=== PATIENT | male | born 1985 | race African-American/Black ===

== ENCOUNTER 2019-04-20 02:25 | Emergency (ER) | payer SELFPAY ==
[~2019-04-20] VITALS: Ht 180.3 cm; Wt 89.4 kg
--- NOTE | 2019-04-20 03:01 | NUR ---
BIBSELF. AMBULATORY. AAOX4. NAD, BREATHING EVEN AND UNLABORED. JERE JUNG. -N/V/D. C/O MOUTH PAIN ON LEFT SIDE UPPER AND LOWER. SHARP PAIN 10/10. PT ALSO HAS C/O MULTIPLE HARD LUMPS/MASS ON HIS LEFT AXILLARY WITH PAIN 5/10. TO ER BED 3. AWAITING MD ORDERS.
[2019-04-20] MEDS ORDERED: NAPROXEN 250 MG TABLET ONE (04:00)
[2019-04-20] MEDS ORDERED: NAPROXEN 500 MG TABLET PO SCH (04:00)
[2019-04-20 04:07] VITALS: BP 157/97
--- NOTE | 2019-04-20 04:09 | NUR ---
Patient discharged to home in stable condition. Written and verbal after care instructions given. Patient verbalizes understanding of instruction. Pt ambulatory with a steady gait
== END 2019-04-20 04:10 | disposition home or self-care (01) ==
LOC: ER 02:34
DX: R59.1 Generalized enlarged lymph nodes (principal); K12.1 Other forms of stomatitis; I10 Essential (primary) hypertension; Z60.2 Problems related to living alone